=== PATIENT | female | born 1935 | race Caucasian/White ===

== ENCOUNTER 2020-11-27 12:43 | Emergency (ER) | payer MEDICARE ==
[~2020-11-27 12:43] MED LIST: PREGABALIN150 MG PO
[2020-11-27 13:11] LABS: BASOPHIL 0.5 % (0-2); EOSINOPHIL 1.8 % (0-7); HCT 36.9 % (37.0-47.0); HGB 12.6 g/dl (12.5-16.0); LYMPHOCYTE 24.1 % (15-48); MCH 32.1 pg (25.0-31.0); MCHC 34.1 g/dL (32.0-36.0); MCV 93.9 fL (78.0-100.0); MONOCYTE 14.8 % (0-12); MPV 9.6 fL (6.0-9.5); NEUTROPHIL 58.6 % (41-80); NRBC 0; PLT 189 K/uL (150-400); RBC 3.93 M/uL (4.20-5.40); RDW 13.2 % (11.5-14.0); WBC 5.7 K/uL (4.0-10.5)
[2020-11-27 13:47] LABS: ALBUMIN 3.5 g/dL (3.4-5.0); BUN/CREAT RATIO (CALC) 23.7 RATIO; CREATININE 0.76 mg/dL (0.51-0.95); GLOBULIN (CALCULATION) 3.3 g/dL; POTASSIUM 3.7 mmol/L (3.5-5.1); TOTAL PROTEIN 6.8 g/dL (6.4-8.2)
[2020-11-27 14:52] LABS: BILIRUBIN NEGATIVE (NEGATIVE); BLOOD NEGATIVE Ery/uL (NEGATIVE); CLARITY CLEAR (CLEAR); COLOR YELLOW (YELLOW); GLUCOSE (U) NORMAL (NORMAL); LEUKOCYTES 3+ Leu/uL (NEGATIVE); NITRITE POSITIVE (NEGATIVE); PROTEIN NEGATIVE (NEGATIVE); SPECIFIC GRAVITY 1.015 (1.001-1.030); UROBILINOGEN 0.2 mg/dL (0.2-1.0); pH 6.5 (5.0-9.0)
[2020-11-27 15:16] LABS: BACTERIA 4+; SQUAMOUS EPITHELIAL CELLS RARE; TRANSITIONAL EPITHELIAL CELLS RARE; URINARY RBC RARE; URINARY WBC TNTC
[2020-11-27] MEDS ORDERED: BACTRIM DS TAB1 EACH PO (15:37)
== END 2020-11-27 17:01 | disposition home or self-care (01) ==
LOC: FER 12:43
PROVIDERS: Internal Medicine
DX: M16.0 Bilateral primary osteoarthritis of hip (principal); K76.9 Liver disease, unspecified; N39.0 Urinary tract infection, site not specified; I10 Essential (primary) hypertension
CPT/HCPCS: 36415; 72131; 72192; 80053; 81001; 84145; 84443; 85025; 86140; 87088; 87186; J0696

== ENCOUNTER 2020-12-04 09:00 | Day surgery (SDC) | payer MEDICARE ==
[~2020-12-04 09:00] MED LIST changes: +BACTRIM DS TAB1 EACH PO
[2020-12-04 09:33] LABS: BASOPHIL 0.4 % (0-2); EOSINOPHIL 0.8 % (0-7); HCT 33.2 % (37.0-47.0); HGB 11.2 g/dl (12.5-16.0); LYMPHOCYTE 11.8 % (15-48); MCH 32.2 pg (25.0-31.0); MCHC 33.7 g/dL (32.0-36.0); MCV 95.4 fL (78.0-100.0); MONOCYTE 8.5 % (0-12); MPV 10.4 fL (6.0-9.5); NEUTROPHIL 78.2 % (41-80); NRBC 0; PLT 179 K/uL (150-400); RBC 3.48 M/uL (4.20-5.40); RDW 13.5 % (11.5-14.0); WBC 7.4 K/uL (4.0-10.5)
[2020-12-04 09:54] LABS: ALBUMIN 3.2 g/dL (3.4-5.0); BILIRUBIN - TOTAL 0.5 mg/dL (0.2-1.0); BUN/CREAT RATIO (CALC) 38.6 RATIO; CREATININE 0.83 mg/dL (0.51-0.95); GLOBULIN (CALCULATION) 3.5 g/dL; POTASSIUM 4.3 mmol/L (3.5-5.1); TOTAL PROTEIN 6.7 g/dL (6.4-8.2)
[2020-12-04 15:15] LABS: HCT 28.7 % (37.0-47.0); HGB 9.6 g/dl (12.5-16.0); MCH 31.9 pg (25.0-31.0); MCHC 33.4 g/dL (32.0-36.0); MCV 95.3 fL (78.0-100.0); MPV 10.7 fL (6.0-9.5); RBC 3.01 M/uL (4.20-5.40); RDW 13.3 % (11.5-14.0); WBC 8.5 K/uL (4.0-10.5)
--- NOTE | 2020-12-04 17:40 | NUR ---
WASTED 75ML VERSED GTT INTO DESTROYER WHITNESSED BY CHOCO MONTGOMERY RN @ 0195
== END 2020-12-04 14:55 | disposition still patient (30) ==
LOC: FER 09:00 → FMS 11:46 → FER 11:46 → FAS 12:55
PROVIDERS: Internal Medicine; Student in an Organized Health Care Education/Training Program
DX: K92.2 Gastrointestinal hemorrhage, unspecified (principal); K57.30 Diverticulosis of large intestine without perforation or abscess without bleeding; K76.89 Other specified diseases of liver; I10 Essential (primary) hypertension; Z20.822 Contact with and (suspected) exposure to COVID-19
CPT/HCPCS: 36415; 80053; 82271; 85025; C9113; J0171; J2250; J2370; J2405; J2704; J7120; U0002